=== PATIENT | male | born 1975 | race Hispanic/Latino ===

== ENCOUNTER 2018-09-16 18:46 | Emergency (ER) | payer MEDICAID ==
[2018-09-16] MEDS ORDERED: LORAZEPAM 1 MG TABLET ONE (19:54)
[2018-09-16 20:49] LABS: RAPID GROUP A STREP NEGATIVE (NEGATIVE)
[2018-09-16 20:50] LABS: APPEARANCE,URINE Clear (CLEAR); BILIRUBIN,URINE Small (NEGATIVE); COLOR,URINE Dark Yellow (YELLOW); GLUCOSE, URINE (UA) Negative (NEGATIVE); KETONES,URINE 15 mg/dL (NEGATIVE); LEUKOCYTE ESTERASE ,URINE Negative (NEGATIVE); NITRATE,URINE Negative (NEGATIVE); OCCULT BLOOD,URINE Negative (NEGATIVE); PH,URINE 6.5 (5.0-8.0); PROTEIN,URINE Trace (NEGATIVE)
[2018-09-16 21:13] LABS: BACTERIA,URINE Rare /HPF (None Seen); MUCUS,URINE Few LPF (None Seen); RBC,URINE None Seen /HPF (0-1); SQUAMOUS EPITHELIAL CELL,UR None Seen /HPF (0-2); WBC,URINE 0-1 /HPF (0-1)
== END 2018-09-16 21:50 | disposition home or self-care (01) ==
LOC: EDH 18:46
DX: R05 Cough (principal); R09.81 Nasal congestion; Z88.1 Allergy status to other antibiotic agents
CPT/HCPCS: 71046; 81001; 87804; 87880